=== PATIENT | male | born 1940 | race Caucasian/White ===

== ENCOUNTER 2021-03-11 15:57 | Outpatient (REF) | payer MEDICARE, MEDICAID, SELFPAY | END 2021-03-11 15:58 | disposition home or self-care (01) | LOC: HO.LAB 15:57 | PROVIDERS: Visit Provider Internal Medicine | DX: Z20.822 Contact with and (suspected) exposure to COVID-19 (principal) | CPT/HCPCS: U0003; U0005 ==